=== PATIENT | male | born 1975 | race Caucasian/White ===

== ENCOUNTER 2023-07-23 17:11 | Emergency (ER) | payer BC ==
[~2023-07-23] VITALS: Ht 182.9 cm; Wt 96.8 kg
[2023-07-23 17:16] VITALS: TEMP 97
[2023-07-23 20:26] VITALS: BP 116/72; PULSE 74
== END 2023-07-23 20:26 | disposition home or self-care (01) ==
LOC: COL.ER 17:11
DX: S62.617A Displaced fracture of proximal phalanx of left little finger, initial encounter for closed fracture (principal); W55.12XA Struck by horse, initial encounter